=== PATIENT | female | born 1990 | race Caucasian/White ===

== ENCOUNTER 2017-12-04 12:41 | Emergency (ER) | payer SELFPAY ==
[~2017-12-04] VITALS: Ht 152.4 cm; Wt 55.4 kg
[2017-12-04 12:43] VITALS: BP 133/78
[2017-12-04] MEDS ORDERED: HYDROcodone/APAP 5/325 TABLET ONE (13:00)
[2017-12-04] MEDS ORDERED: HYDROcodone/APAP 5/325 TABLET PO ONE (13:00)
== END 2017-12-04 14:22 | disposition home or self-care (01) ==
LOC: ED 13:00
DX: S93.491A Sprain of other ligament of right ankle, initial encounter (principal); W10.9XXA Fall (on) (from) unspecified stairs and steps, initial encounter; Y93.89 Activity, other specified; Y92.009 Unspecified place in unspecified non-institutional (private) residence as the place of occurrence of the external cause; Y99.8 Other external cause status
CPT/HCPCS: 99284

== ENCOUNTER 2018-05-06 21:58 | Emergency (ER) | payer OTHER ==
[~2018-05-06] VITALS: Ht 152.4 cm; Wt 51.5 kg
[2018-05-06 22:00] VITALS: BP 118/86
[2018-05-06] MEDS ORDERED: ACETAMINOPHEN 325 MG TABLET ONE (22:50)
== END 2018-05-06 22:55 | disposition home or self-care (01) ==
LOC: ED 22:13
DX: R07.89 Other chest pain (principal); R11.0 Nausea
CPT/HCPCS: 71046; 99283